=== PATIENT | male | born 1980 | race Caucasian/White ===

== ENCOUNTER 2023-10-20 16:30 | Emergency (ER) | payer BC, SELFPAY ==
--- NOTE | ~2023-10-20 | CT_ITS ---
EXAMINATION: CT lumbar spine wo con DATE: 10/20/2023 17:24 INDICATION: ACUTE LOWER BACK PAIN . TECHNIQUE: Computed tomography (CT) of the lumbar spine was performed without intravenous contrast. A utomated exposure control and iterative reconstruction technique were employed. The dose-length produ ct was 1519.47 mGy-cm. COMPARISON: None. FINDINGS: 5 nonrib-bearing lumbar-type vertebral bodies. Pedicles intact. Trace anterolisthesis at L5 -S1. Bilateral pars defects at L5. Vertebral body heights preserved. Mild disc space narrowing at L4- 5. Moderate disc space narrowing with a moderate diffuse bulge at L5-S1. Moderate bilateral neural fo raminal narrowing at L5-S1. No severe central canal narrowing. Moderate facet hypertrophy at L4-5 and L5-S1. IMPRESSION: Multilevel degenerative disc disease, moderate at L5-S1 where there is a trace anterolisthesis second radha to bilateral pars defects and moderate bilateral neural foraminal narrowing. Moderate facet arthr opathy at L4-5 and L5-S1. Reviewed, dictated and finalized at location K. IMPRESSION: Multilevel degenerative disc disease, moderate at L5-S1 where there is a trace anterolisthesis secondary to bilateral pars defects and moderate bilateral neur al foraminal narrowing. Moderate facet arthropathy at L4-5 and L5-S1.
[2023-10-20 16:30] VITALS: BP 131/89; PULSE 86; RESP 18; TEMP 36.4; O2SAT 97
--- NOTE | 2023-10-20 16:38 | ED.BACK ---
HPI - Back Pain/Injury General Chief Complaint: Back Pain/Injury Stated Complaint: back pain Time Seen by Provider: 10/20/23 16:37 Source: patient and family Mode of arrival: ambulatory Limitations: no limitations History of Present Illness HPI Narrative: PATIENT WAS BENDING OVER YESTERDAY TO BOBTAILER AN EMPTY BOX FELT SHARP STABBING PAIN ACROSS THE LUMBAR AREA. PATIENT REPORT HAVING HISTORY OF CHRONIC LOWER BACK PAIN WITH INTERMITTENT FLARE UP. PATIENT REPORT HAVING SAT COUNT THE LEFT SIDE WHICH IS NOT DIFFERENT THAN BEFORE. HE DENIES CAUDA EQUINA PATIENT DENIES BOWEL DYSFUNCTION, BLADDER DYSFUNCTION, ALTERED SENSATION, FOCAL WEAKNESS, OR SADDLE NUMBNESS, Related Data Allergies Allergy/AdvReac Type Severity Reaction Status Date / Time No Known Allergies Allergy Verified 10/20/23 17:01 Review of Systems Review of Systems: All systems reviewed & are unremarkable except as noted in HPI and below PMFSH Family History Family History Father Family history of malignant neoplasm of kidney Social History Social History Smoking status: Heavy tobacco smoker Alcohol intake: current Exam Narrative: GENERAL APPEARANCE: WELL-DEVELOPED, WELL-NOURISHED SKIN: NORMAL COLOR HEAD: NORMOCEPHALIC, NONTRAUMATIC EYES: CLEAR CONJUNCTIVA ENT: OROPHARYNX NORMAL, EARS NORMAL, NOSE NORMAL NECK: SUPPLE, NONTENDER CHEST AND RESPIRATORY: AIRWAY PATENT, NO RESPIRATORY DISTRESS, NO ACCESSORY MUSCLE USE HEART: REGULAR RATE/RHYTHM ABDOMEN: SOFT, NONTENDER, NO ORGANOMEGALY, QUIET BOWEL SOUNDS VASCULAR: NORMAL PERIPHERAL PULSES, NORMAL CAPILLARY REFILL. MUSCULOSKELETAL: NORMAL RANGE OF MOTION, NONTENDER BACK NEUROLOGIC: ALERT AND ORIENTED ?3, HEAVY EQUIPMENT OPERATING ENGINEER IS NORMAL TESTED, NO GROSS MOTOR DEFICIT, NEGATIVE STRAIGHT LEG RAISING TEST Course Vital Signs Vital signs: Vital Signs Temperature 36.4 C 10/20/23 16:30 Pulse Rate 86 10/20/23 16:30 Respiratory Rate 18 10/20/23 16:30 Blood Pressure 131/89 10/20/23 16:30 Pulse Oximetry 97 10/20/23 16:30 Oxygen Delivery Room Air 10/20/23 16:30 Temperature 36.4 C 10/20/23 16:30 Pulse Rate 86 10/20/23 16:30 Respiratory Rate 18 10/20/23 16:30 Blood Pressure 137/95 H 10/20/23 17:38 Pulse Oximetry 95 10/20/23 17:38 Oxygen Delivery Room Air 10/20/23 17:38 MDM - Back Pain/Injury MDM Narrative Medical decision making narrative: PATIENT FELT A POP ACROSS LUMBAR AREA WAS TRYING TO LIFT AN EMPTY BOX YESTERDAY. PHYSICAL EXAMINATION SHOWED NO TENDERNESS, PATIENT HAVE LIMITED RANGE OF MOTION AT THE LUMBAR AREA MAINLY FLEXION OR BENDING OVER. CT LUMBAR SPINE SHOWED NO ACUTE ABNORMALITIES, PATIENT RECEIVED 1 MG OF DILAUDID IM, 60 MG OF TORADOL IM, 4 MG OF ZOFRAN P.O. WITH REMARKABLE IMPROVEMENT. DISCHARGE ON NAPROXEN AND CYCLOBENZAPRINE. Differential Diagnosis Differential diagnosis: Likely other ( MUSCULAR STRAIN/ SPRAIN) Imaging Data My impression: CT LUMBAR SPINE SHOWED NO ACUTE ABNORMALITIES Radiologist's impression: Impressions Lumbar Spine CT 10/20/23 17:46 IMPRESSION: Multilevel degenerative disc disease, moderate at L5-S1 where there is a trace anterolisthesis secondary to bilateral pars defects and moderate bilateral neural foraminal narrowing. Moderate facet arthropathy at L4-5 and L5-S1. Critical Care Time Critical Care Time Critical Care Time: No Discharge Plan Discharge Clinical Impression: Lower back pain Patient Disposition: Home, Self-Care Condition: Improved Instructions: Acute Low Back Pain (ED) Additional Instructions: , RETU
[2023-10-20] MEDS: HYDROmorphone HCL INJ (*CRX) 2 MG/ML VIAL 1 MG IM (17:29)
[2023-10-20] MEDS: ONDANSETRON HCL ODT 4 MG TABLET PO (17:31)
[2023-10-20] MEDS: KETOROLAC (*BKC) 60 MG/2 ML VIAL IM (17:31)
[2023-10-20 17:38] VITALS: BP 137/95; O2SAT 95
== END 2023-10-20 18:25 | disposition home or self-care (01) ==
PROVIDERS: Emergency Provider Emergency Medicine; PCP Physician Assistant
DX: M54.50 Low back pain, unspecified (principal)
CPT/HCPCS: 72131; 96372; 99284; A9270; J1170; J1885